=== PATIENT | male | born 1985 | race Caucasian/White ===

== ENCOUNTER 2019-02-22 19:31 | Emergency (ER) | payer BC ==
[~2019-02-22] VITALS: Ht 165.1 cm; Wt 66.7 kg
--- NOTE | 2019-02-22 19:52 | NUR ---
SEEN AND EXAMINED BY CHEYENNE GUTHRIE
--- NOTE | 2019-02-22 19:55 | NUR ---
TECH AT BEDSIDE CLEANING WOUND
--- NOTE | 2019-02-22 19:56 | NUR ---
PATIENT BIB SELF W/ FRIEND TO ER C/O LEFT THUMB LACERATION. PATIENT STATES HE WAS REACHING FOR A BROKEN VASE ON A SHELF THAT HAD CUT HIS LEFT THUMB 30MIN [employer]. AAOX4. MINIMAL DARK RED BLEEDING NOTED. STERILE GAUZE GIVEN TO STOP BLEEDING. NO SOB. NOT IN ANY DISTRESS. BREATHING EVENLY AND UNLABORED. CONNECTED TO MONITOR.
[2019-02-22] MEDS ORDERED: LIDOCAINE 2%-EPI 1:100,000 30 ML VIAL ONE (20:09)
[2019-02-22] MEDS ORDERED: ACETAMINOPHEN ES 500 MG TABLET ONE (20:29)
[2019-02-22] MEDS ORDERED: ACETAMINOPHEN ES 500 MG TABLET PO ONE (20:30)
[2019-02-22] MEDS ORDERED: LIDOCAINE 1%-EPI 1:100,000 20 ML VIAL TP ONE (20:30)
[2019-02-22] MEDS ORDERED: TDAP [DIPH/PERTUSSIS/TET] 0.5 ML VIAL IM ONE ×2 (20:30)
--- NOTE | 2019-02-22 20:56 | NUR ---
PA at bedside for suturing
--- NOTE | 2019-02-22 22:08 | NUR ---
TACH AT BEDSIDE APPLYING THUMB SPICA ON LEFT THUMB
--- NOTE | 2019-02-22 22:22 | NUR ---
Patient discharged to home in stable condition. Written and verbal after care instructions given. Patient verbalizes understanding of instruction.
[2019-02-22 22:24] VITALS: BP 138/76
== END 2019-02-22 22:25 | disposition home or self-care (01) ==
LOC: ER 19:32
DX: S61.012A Laceration without foreign body of left thumb without damage to nail, initial encounter (principal); D89.9 Disorder involving the immune mechanism, unspecified; F17.200 Nicotine dependence, unspecified, uncomplicated; Z60.2 Problems related to living alone; W26.8XXA Contact with other sharp object(s), not elsewhere classified, initial encounter; Y93.89 Activity, other specified; Y92.89 Other specified places as the place of occurrence of the external cause; Y99.8 Other external cause status
CPT/HCPCS: 12002; 90471; 90715; 99283; A6403 ×2; J3490